=== PATIENT | male | born 1980 | race Caucasian/White ===

== ENCOUNTER 2021-08-28 13:20 | Emergency (ER) | payer OTHER ==
[2021-08-28 13:46] LABS: BASOPHIL 0.4 % (0-2); EOSINOPHIL 0.7 % (0-5); HCT 46.2 % (42.0-52.0); HGB 15.3 g/dl (13.2-18.0); MCH 29.4 pg (25.0-31.0); MCHC 33.1 g/dL (32.0-36.0); MCV 88.7 fL (78.0-100.0); MONOCYTE 5.6 % (0-12); MPV 10.1 fL (6.0-9.5); NRBC 0; PLT 303 K/uL (150-400); RBC 5.21 M/uL (4.70-6.00); RDW 12.6 % (11.5-14.0); WBC 7.1 K/uL (4.0-10.5)
[2021-08-28 14:06] LABS: BUN 15 mg/dL (7-18); BUN/CREAT RATIO (CALC) 16.5 RATIO; CHLORIDE 101 mmol/L (98-107); CO2 (BICARBONATE) 30 mmol/L (21-32); CREATININE 0.91 mg/dL (0.67-1.17); GLUCOSE 155 mg/dL (74-106); POTASSIUM 4.5 mmol/L (3.5-5.1)
[2021-08-28 14:55] LABS: BILIRUBIN NEGATIVE (NEGATIVE); BLOOD TRACE-INTACT Ery/uL (NEGATIVE); CLARITY HAZY (CLEAR); COLOR YELLOW (YELLOW); GLUCOSE (U) NORMAL (NORMAL); LEUKOCYTES 2+ Leu/uL (NEGATIVE); NITRITE NEGATIVE (NEGATIVE); PROTEIN NEGATIVE (NEGATIVE)
[2021-08-28 15:03] LABS: AMPHETAMINES NEGATIVE (NEGATIVE); BARBITURATES NEGATIVE (NEGATIVE); ECSTASY (MDMA) NEGATIVE (NEGATIVE); MARIJUANA (THC) NEGATIVE (NEGATIVE); METHADONE NEGATIVE (NEGATIVE); OPIATES NEGATIVE (NEGATIVE); OXYCODONE NEGATIVE (NEGATIVE)
[2021-08-28 15:17] LABS: URINARY WBC TNTC
[2021-08-28 15:18] LABS: BACTERIA 1+
[2021-08-28] MEDS ORDERED: ANTIVERT25 MG PO (15:38)
[2021-08-28] MEDS ORDERED: LEVAQUIN500 MG PO (15:38)
== END 2021-08-28 16:54 | disposition home or self-care (01) ==
LOC: FER 13:20
PROVIDERS: Emergency Medicine
DX: R42 Dizziness and giddiness (principal); N39.0 Urinary tract infection, site not specified; E11.638 Type 2 diabetes mellitus with other oral complications
CPT/HCPCS: 36415; 70450; 80048; 80305; 81001; 85025; 87076; 87088; 87186; G0480; J3360

== ENCOUNTER 2021-08-29 13:12 | Emergency (ER) | payer OTHER ==
[~2021-08-29 13:12] MED LIST: ANTIVERT25 MG PO; LEVAQUIN500 MG PO
== END 2021-08-29 15:15 | disposition home or self-care (01) ==
LOC: FER 13:12
DX: S00.93XA Contusion of unspecified part of head, initial encounter (principal); I10 Essential (primary) hypertension; E11.9 Type 2 diabetes mellitus without complications; W06.XXXA Fall from bed, initial encounter; Y92.89 Other specified places as the place of occurrence of the external cause
CPT/HCPCS: 70450; 72125

== ENCOUNTER 2021-08-29 20:07 | Emergency (ER) | payer OTHER ==
[2021-08-29 20:41] LABS: BASOPHIL 0.5 % (0-2); EOSINOPHIL 0.5 % (0-5); HCT 44.5 % (42.0-52.0); HGB 14.8 g/dl (13.2-18.0); LYMPHOCYTE 22.4 % (15-48); MCH 29.5 pg (25.0-31.0); MCHC 33.3 g/dL (32.0-36.0); MCV 88.6 fL (78.0-100.0); MONOCYTE 5.8 % (0-12); MPV 10.2 fL (6.0-9.5); NEUTROPHIL 70.5 % (41-80); NRBC 0; PLT 290 K/uL (150-400); RBC 5.02 M/uL (4.70-6.00); RDW 12.8 % (11.5-14.0); WBC 10.8 K/uL (4.0-10.5)
[2021-08-29 21:01] LABS: ALBUMIN 3.6 g/dL (3.4-5.0); BILIRUBIN - TOTAL 0.8 mg/dL (0.2-1.0); BUN/CREAT RATIO (CALC) 17.7 RATIO; CREATININE 0.96 mg/dL (0.67-1.17); GLOBULIN (CALCULATION) 3.9 g/dL; TOTAL PROTEIN 7.5 g/dL (6.4-8.2)
== END 2021-08-29 22:49 | disposition home or self-care (01) ==
LOC: FER 20:07
PROVIDERS: Internal Medicine
DX: R07.89 Other chest pain (principal); R42 Dizziness and giddiness; I10 Essential (primary) hypertension
CPT/HCPCS: 36415; 71045; 80053; 83690; 84443; 84484; 85025; 93005; J1885; J7040

== ENCOUNTER 2021-09-10 11:04 | Emergency (ER) | payer OTHER ==
[2021-09-10 12:32] LABS: BASOPHIL 0.4 % (0-2); BUN/CREAT RATIO (CALC) 15.3 RATIO; CREATININE 0.85 mg/dL (0.67-1.17); EOSINOPHIL 0.5 % (0-5); HCT 48.1 % (42.0-52.0); HGB 16.1 g/dl (13.2-18.0); MCH 29.5 pg (25.0-31.0); MCHC 33.5 g/dL (32.0-36.0); MCV 88.3 fL (78.0-100.0); MONOCYTE 5.2 % (0-12); MPV 10.6 fL (6.0-9.5); NEUTROPHIL 79.5 % (41-80); NRBC 0; PLT 329 K/uL (150-400); POTASSIUM 4.8 mmol/L (3.5-5.1); RBC 5.45 M/uL (4.70-6.00); RDW 12.7 % (11.5-14.0); WBC 9.5 K/uL (4.0-10.5)
[2021-09-10 13:15] LABS: BILIRUBIN NEGATIVE (NEGATIVE); BLOOD NEGATIVE Ery/uL (NEGATIVE); CLARITY CLEAR (CLEAR); COLOR YELLOW (YELLOW); GLUCOSE (U) NORMAL (NORMAL); LEUKOCYTES 1+ Leu/uL (NEGATIVE); NITRITE NEGATIVE (NEGATIVE); PROTEIN NEGATIVE (NEGATIVE); UROBILINOGEN 0.2 mg/dL (0.2-1.0)
[2021-09-10 13:22] LABS: MARIJUANA (THC) NEGATIVE (NEGATIVE)
[2021-09-10 13:23] LABS: ECSTASY (MDMA) NEGATIVE (NEGATIVE); METHADONE NEGATIVE (NEGATIVE); OPIATES NEGATIVE (NEGATIVE)
[2021-09-10 13:24] LABS: AMPHETAMINES NEGATIVE (NEGATIVE); BARBITURATES NEGATIVE (NEGATIVE); OXYCODONE NEGATIVE (NEGATIVE)
[2021-09-10 13:25] LABS: BACTERIA TRACE; SQUAMOUS EPITHELIAL CELLS RARE; URINARY WBC 20-50
[2021-09-10] MEDS ORDERED: BACTRIM DS TAB1 EACH PO (14:11)
== END 2021-09-10 14:40 | disposition home or self-care (01) ==
LOC: FER 11:04
PROVIDERS: Nurse Practitioner Family
DX: N39.0 Urinary tract infection, site not specified (principal); R55 Syncope and collapse
CPT/HCPCS: 36415; 80048; 80305; 81001; 85025; 99284; J7030